=== PATIENT | male | born 1960 | race Caucasian/White ===

== ENCOUNTER 2017-09-22 14:20 | Emergency (ER) | payer MEDICAID ==
[2017-09-22 15:36] LABS: BASO % 0.2 % (0-6); EOS % 1.9 % (0-6); GRAN % 68.3 % (47-80); HEMATOCRIT 47.8 % (42.0-52.0); HEMOGLOBIN 16.6 gm/dl (14.0-18.0); LYMPH % 22.3 % (16-45); MEAN CELL VOLUME 87.5 fl (81-97); MEAN CORPUSCULAR HEMOGLOBIN 30.4 pg (27-33); MEAN CORPUSCULAR HGB CONC 34.7 g/dl (32-36); MEAN PLATELET VOLUME 10.2 fl (7.4-10.4); MONO % 7.3 % (0-9); PLATELET COUNT 151 K/uL (130-400); RED BLOOD COUNT 5.46 M/uL (4.40-5.70); RED CELL DISTRIBUTION WIDTH 14.7 % (11.5-14.5); WHITE BLOOD COUNT W/O DIFF 8.4 K/uL (4.2-12.2)
[2017-09-22 15:45] LABS: BLOOD UREA NITROGEN 15 mg/dL (6-20)
[2017-09-22 15:46] LABS: CREATININE 1.2 mg/dL (0.7-1.2); EST GLOMERULAR FILTRATION RATE > 60 mL/min; INR 1.05; PARTIAL THROMBOPLASTIN TIME 27.9 SECONDS (24.5-39.1); PROTHROMBIN TIME (PATIENT) 11.3 SECONDS (9.5-12.1); TOTAL PROTEIN 8.3 g/dL (6.6-8.7)
[2017-09-22 15:48] LABS: GLUCOSE,RANDOM 122 mg/dL (74-109)
[2017-09-22 15:51] LABS: ALB/GLOB RATIO 1.3 (1.1-1.8); ALBUMIN 4.7 g/dL (4.0-5.0); ALKALINE PHOSPHATASE 116 U/L (40-129); ALT/SGPT 29 U/L (<41); AST/SGOT 33 U/L (10.0-50.0); LIPASE 53 U/L (13-60)
[2017-09-22] MEDS ORDERED: ONDANSETRON HCL IV 4 MG/2 ML VIAL IVP ONE (16:06)
--- NOTE | 2017-09-22 17:10 | Emergency Department Record ---
History of Present Illness - General Chief complaint: GI Bleed Stated complaint: THROWING UP BLOOD Time Seen by Provider: 09/22/17 15:14 Source: Patient Mode of Arrival: Ambulatory Limitations: No limitations - History of Present Illness Initial comments: pt vomited blood today x 1. pt has a hx of same and has a hx of esophageal varices and cirrhosis and banding. he has seen dr perez and goes to a liver specialist at [facility] complaint: Gross hematemesis Onset/Timin -: Hour(s) Quality: Dull Consistency: Intermittent Improves with: None Worsens with: None Context: History of GI bleed, Liver disease Associated Symptoms: Denies other symptoms Treatments Prior to Arrival: None - Related Data Home Medications Medication Instructions Recorded Confirmed Last Taken Carvedilol [Coreg] 6.25 mg PO DAILY 09/22/17 09/22/17 09/22/17 Furosemide [Lasix] 20 mg PO DAILY 09/22/17 09/22/17 09/22/17 Spironolactone [Aldactone] 50 mg PO DAILY 09/22/17 09/22/17 09/22/17 Allergies Allergy/AdvReac Type Severity Reaction Status Date / Time No Known Drug Allergies Allergy Verified 09/22/17 14:45 Travel Screening - Travel/Exposure Within Last 30 Days Have you traveled within the last 30 days?: No - Travel/Exposure Within Last Year Have you traveled outside the [place] in the last year?: No - Additonal Travel Details Have you been exposed to anyone with a communicable illness?: No - Travel Symptoms Symptom Screening: None Review of Systems Reviewed: No additional complaints except as noted below Constitutional: Reports: As per HPI. Denies: Chills, Fever, Malaise, Night sweats, Weakness, Weight change Eyes: Reports: As per HPI. Denies: Eye discharge, Eye pain, Photophobia, Vision change ENT: Reports: As per HPI. Denies: Congestion, Dental pain, Ear pain, Epistaxis , Hearing loss, Throat pain Respiratory: Reports: As per HPI. Denies: Cough, Dyspnea, Hemoptysis, Stridor, Wheezes Cardiovascular: Reports: As per HPI. Denies: Arrhythmia, Chest pain, Dyspnea on exertion, Edema, Murmurs, Orthopnea, Palpitations, Paroxysmal nocturnal dyspnea, Rheumatic Fever, Syncope Endocrine: Reports: As per HPI. Denies: Fatigue, Heat or cold intolerance, Polydipsia, Polyuria Gastrointestinal: Reports: As per HPI. Denies: Abdominal pain, Constipation, Diarrhea, Hematemesis, Hematochezia, Melena, Nausea, Vomiting Genitourinary: Reports: As per HPI. Denies: Dysuria, Frequency, Hematuria, Incontinence, Retention, Testicular pain, Testicular mass, Urgency Musculoskeletal: Reports: As per HPI. Denies: Arthralgia, Back pain, Gout, Joint swelling, Myalgia, Neck pain Skin: Reports: As per HPI. Denies: Bruising, Change in color, Change in hair/ nails, Lesions, Pruritus, Rash Neurological: Reports: As per HPI. Denies: Abnormal gait, Confusion, Headache, Numbness, Paresthesias, Seizure, Tingling, Tremors, Vertigo, Weakness Psychiatric: Reports: As per HPI. Denies: Anxiety, Auditory hallucinations, Depression, Homicidal thoughts, Suicidal thoughts, Visual hallucinations Hematological/Lymphatic: Reports: As per HPI. Denies: Anemia, Blood Clots, Easy bleeding, Easy bruising, Swollen glands Past Medical History - SOCIAL HISTORY Smoking Status: Current some day smoker Alcohol Use: None Drug Use: None - RESPIRATORY Hx Respiratory Disorders: No - CARDIOVASCULAR Hx Cardio Disorders: No - NEURO Hx Neuro Disorders: No - GI Hx GI Disorders: Yes Hx Abdominal Pain: Yes ("pressure at sternum") Hx Reflux: Yes Hx Liver Disease: Yes (cirrhosis) Comment:: varices - Hx Genitourinary Disorders: No - ENDOCRINE Hx Endocrine Disorders: No - MUSCULOSKELETAL Hx Musculoskeletal Disorders: Yes - PSYCH Hx Psych Problems: No - HEMATOLOGY/ONCOLOGY Hx Hematology/Oncology Disorders: Yes Hx Anemia: Yes Family Medical History Any Significant Family History?: Yes Hx Cancer: Father *Cancer Comment: lung Hx Heart Disease: Father Hx HTN: Father Physical Exam - General General Appearance: Alert, Oriented x3, Cooperative, Mild distress - Head Head exam: Normal inspection - Eye Eye exam: Normal appearance, PERRL, EOMI Pupils: Normal accommodation - ENT ENT exam: Normal exam, Mucous membranes moist, Normal external ear exam, Normal orophraynx Ear exam: Normal external inspection. negative: External canal tenderness Nasal Exam: Normal inspection. negative: Discharge, Sinus tenderness Mouth exam: Normal external inspection, Tongue normal Teeth exam: Normal inspection. negative: Dental caries Throat exam: Normal inspection. negative: Tonsillar erythema, Tonsillar exudate - Neck Neck exam: Normal inspection, Full ROM. negative: Tenderness - Respiratory Respiratory exam: Normal lung sounds bilaterally. negative: Respiratory distress - Cardiovascular Cardiovascular Exam: Regular rate, Normal rhythm, Normal heart sounds - GI/Abdominal GI/Abdominal exam: Soft, Normal bowel sounds, Tenderness - Rectal Rectal exam: Deferred - exam: Deferred - Extremities Extremities exam: Normal inspection, Full ROM, Normal capillary refill. negative: Tenderness - Back Back exam: Reports: Normal inspection, Full ROM. Denies: Muscle spasm, Rash noted, Tenderness - Neurological Neurological exam: Alert, CN II-XII intact, Normal gait, Oriented X3 - Psychiatric Psychiatric exam: Normal affect, Normal mood - Skin Skin exam: Dry, Intact, Normal color, Warm Course Vital Signs 09/22/17 14:49 Temperature 97.6 F Pulse Rate 91 H Respiratory 20 Rate Blood Pressure 140/90 Pulse Ox 97 - Reevaluation(s) Reevaluation #1: 09/22/17 17:08 d/w dr pandey Medical Decision Making - Lab Data Result diagrams: 09/22/17 15:20 09/22/17 15:20 Lab Results 09/22/17 09/22/17 09/22/17 Range/Units 15:20 15:20 15:20 WBC 8.4 (4.2-12.2) K/uL RBC 5.46 (4.40-5.70) M/uL Hgb 16.6 (14.0-18.0) gm/dl Hct 47.8 (42.0-52.0) % MCV 87.5 (81-97) fl MCH 30.4 (27-33) pg MCHC 34.7 (32-36) g/dl RDW 14.7 H (11.5-14.5) % Plt Count 151 (130-400) K/uL MPV 10.2 (7.4-10.4) fl Gran % 68.3 (47-80) % Lymphocytes % 22.3 (16-45) % Monocytes % 7.3 (0-9) % Eosinophils % 1.9 (0-6) % Basophils % 0.2 (0-6) % PT 11.3 (9.5-12.1) SECONDS INR 1.05 APTT 27.90 (24.5-39.1) SECONDS Sodium 139 (136-145) mmol/L Potassium 4.2 (3.4-4.5) mmol/L Chloride 100 (98-107) mmol/L Carbon Dioxide 24.0 (22-29) mmol/L Anion Gap 15.0 (7-16) BUN 15 (6-20) mg/dL Creatinine 1.2 (0.7-1.2) mg/dL Estimated GFR > 60 mL/min Random Glucose 122 H (74-109) mg/dL Calcium 9.9 (8.6-10.0) mg/dL Total Bilirubin 0.80 (0.2-1.0) mg/dL AST 33 (10.0-50.0) U/L ALT 29 (<41) U/L Alkaline Phosphatase 116 (40-129) U/L Total Protein 8.3 (6.6-8.7) g/dL Albumin 4.7 (4.0-5.0) g/dL Globulin 3.6 (1.4-4.8) gm/dL Albumin/Globulin Ratio 1.3 (1.1-1.8) Lipase 53 (13-60) U/L Disposition Disposition: Transfer Clinical Impression: UGI bleed Esophageal varices Qualifiers: Esophageal varices type: unspecified type Esophageal varices bleeding: with bleeding Qualified Code(s): I85.01 - Esophageal varices with bleeding Disposition: Acute Care Hospital Transfer Transfer To: [facility] Reason For Transfer: ugi bleeding Accepting Physician: chiki liang Time Discussed w/Accepting Physician: 17:22 Forms: Patient Portal Access Quality - Quality Measures Quality Measures: N/A - Blood Pressure Screening Does Patient Have Any of the Following: No Blood Pressure Classification: Hypertensive Reading Systolic Measurement: 140 Diastolic Measurement: 90 Screening for High Blood Pressure: < Pre-Hypertensive BP, F/U Documented > [ [id number]] Pre-Hypertensive Follow-up Interventions: Follow-up with rescreen every year.
== END 2017-09-22 19:04 | disposition short-term general hospital (02) ==
LOC: ER 14:20
DX: K92.0 Hematemesis (principal); I85.01 Esophageal varices with bleeding; K74.60 Unspecified cirrhosis of liver
CPT/HCPCS: 80053; 83690; 85025; 85610; 85730; 96374; 99285; J2405